=== PATIENT | male | born 1960 | race Caucasian/White ===

== ENCOUNTER 2016-07-03 22:37 | Emergency (ER) | payer MEDICARE, MEDICAID ==
[~2016-07-03] VITALS: Ht 170.2 cm; Wt 147.7 kg
[2016-07-03 22:37] VITALS: BP 121/67; PULSE 84; RESP 15; O2SAT 100
[~2016-07-03 22:37] MED LIST: ASPI325T32 PO; ATOR20TA PO; BUPR100T7 PO; CLON0.1T PO; GABA600T2 PO; LURA60TA PO; METO25TA3 PO
--- NOTE | 2016-07-03 22:38 | ED.REPORT ---
HPI-General Illness Date of Service Jul 03, 2016 ED Provider: Phu Razo MD Patient is an obese 56 year old male with a history of bipolar disorder, hypertension, and coronary artery disease with prior FL and 3x prior stents who presents to the ED via EMS following a syncopal episode just prior to arrival. Patient reports that he sat outside in the sun all day reading and spent some time weeding. He then went inside and ate a big meal, consumed several shots of whiskey, and smoked some cigarettes. The patient then became lightheaded, sat down in his chair, and had an syncopal episode. Patient denies experiencing any chest pain or shortness of breath. His symptoms did not feel similar to when he previously had an FL. The patient has swelling in his legs at baseline, which has not increased recently. The patient states that his right arm sometimes becomes swollen after sleeping on it. He admits to diaphoresis but denies nausea , vomiting, or diarrhea. The patient admits to a chronic "smoker's cough" but states that he has plans to quit smoking. Nursing Notes Stated Complaint: SYNCOPE Chief Complaint: Chest Pain Nursing Notes Reviewed: Yes Allergies: Coded Allergies: tramadol (Verified Allergy, Severe, 05/09/15) pollen extracts (Verified Allergy, Unknown, 09/19/15) Uncoded Allergies: VITAMIN B12 EXTRACTS (Allergy, Unknown, 09/19/15) Scheduled Aspirin (Aspirin) 325 Mg Tablet.dr 325 MG PO DAILY Atorvastatin (Lipitor) 20 Mg Tablet 20 MG PO DAILY Bupropion ER (Wellbutrin SR) 100 Mg Tablet.er 100 MG PO DAILY Clonidine (Clonidine) 0.1 Mg Tablet 0.1 MG PO HS Gabapentin (Gabapentin) 600 Mg Tablet 600 MG PO TID Metoprolol Succinate ER (Toprol XL) 25 Mg Tab.er.24h 25 MG PO DAILY Miscellaneous Medications Lurasidone (Latuda) 60 Mg Tablet 60 MG PO General Time Seen by MD: 22:38 Chief Complaint Other (syncope) Hx Obtained From: Patient Arrived By: Ambulance Sudden in Onset?: Yes Onset Occurred: Just prior to arrival Symptom Duration: Since onset Severity: Current: No pain currently Severity: Maximum: No pain Recent Healthcare: No recent doctor visit, No recent hospitalization Similar Sx Previous: No Past Medical History Past Medical History chronic right hip pain bipolar disorder hiatal hernia gastric ulcer Reports: Coronary artery disease, GERD, Hypertension Reports: Depression Past Surgical History Left hip repair cardiac stents 3x Reports: Appendectomy Smoking History Current Every Day Smoker Social History Alcohol Use: In recovery Other Social History: Local resident Ambulatory Status Independent Review of Systems Full Review of Systems Respiratory: Reports: Non-productive cough, Denies: Shortness of breath Cardiovascular: Denies: Chest pain GI: Denies: Diarrhea, Nausea, Vomiting Musculoskeletal: Reports: Extremity swelling (at baseline) Skin: Reports Diaphoresis Neurologic: Reports: Lightheaded, Syncope Complete sys rev & neg: except as marked. Physical Exam Vital Signs Vital Signs Date Time Temp Pulse Resp B/P Pulse Ox O2 Delivery O2 Flow Rate FiO2 07/04/16 02:14 36.6 70 16 142/80 94 Room Air 07/04/16 01:05 71 20 147/69 96 Room Air 07/03/16 22:37 36.6 84 15 121/67 100 Room Air Initial VS: Reviewed Respiratory: Breath sounds normal, Clear to auscultation, No respiratory distress Cardiovascular: Regular rate & rhythm, Heart sounds normal Neurologic: Alert, Oriented, Nonfocal Psychiatric: Mood/affect normal, Behavior normal General/Constitutional: Awake, Alert, No acute distress Appearance / Presentation: Positive: Obese, morbidly Head / Eyes: Atraumatic, Normocephalic, PERRL ENT: Airway patent, Mucous membranes moist Neck: Supple, Non-tender, No midline vertebral tend Abdomen: Soft, Non-tender, No guarding, No rebound, No distention Upper Extremities Upper Extremity / MS: Atraumatic, No swelling, Neurologic intact, Vascular intact, No edema Lower Extremity / Pelvis / MS: Atraumatic, Neurologic intact, Vascular intact 2+ chronic edema of the bilateral extremities Skin: Warm, Dry Rash / Lesion Notes: Fresh sunburn to his chest, arms, and face. Interpretation & Diagnostics Lab Results Interpretation Result Diagram: 07/03/16225007/03/16 2251 Test 07/03/16 22:51 07/04/16 01:05 07/04/16 01:15 White Blood Count 10.0th/mm3 (3.8-10.1) Red Blood Count 4.69mil/mm3 (4.40-5.80) Hemoglobin 14.7g/dL (13.8-17.2) Hematocrit 43.3% (41.0-50.0) Mean Corpuscular Volume 92.3fL (81-100) Mean Corpuscular Hemoglobin 31.3pg (27.0-35.0) Mean Corpuscular Hemoglobin Concent 33.9% (32.0-37.0) Red Cell Distribution Width 14.1% (12.3-15.4) Platelet Count 247bil/L (150-400) Neutrophils (%) (Auto) 65.5% (40-74) Lymphocytes (%) (Auto) 25.1% (14-46) Monocytes (%) (Auto) 6.8% (4-12) Eosinophils (%) (Auto) 2.0% (0-5) Basophils (%) (Auto) 0.2% (0-3) Band Neutrophils % 0% (1-5) Prothrombin Time 10.5sec (8.1-12.5) Prothromb Time International Ratio 0.98ratio Activated Partial Thromboplast Time 26.1sec (22.8-33.0) Sodium Level 138mEq/L (134-144) Potassium Level 4.0mEq/L (3.5-5.2) Chloride Level 102mEq/L (97-108) Carbon Dioxide Level 23mmol/L (18-29) Blood Urea Nitrogen 9mg/dL (6-24) Creatinine 1.28mg/dL (0.76-1.27) Estimat Glomerular Filtration Rate 62mL/min (>59) Glucose Level 102mg/dL (60-99) Calcium Level 8.6mg/dL (8.5-10.1) Magnesium Level 1.9mg/dL (1.6-2.6) Total Bilirubin 0.3mg/dL (0.0-1.2) Aspartate Amino Transf (AST/SGOT) 20U/L (0-50) Alanine Aminotransferase (ALT/SGPT) 26U/L (0-44) Alkaline Phosphatase 123U/L (25-150) Pro-B-Type Natriuretic Peptide 88.58pg/mL (0-210) Total Protein 6.5g/dL (6.4-8.4) Albumin 3.5g/dL (3.4-5.0) Hold Mathews Top Tube Received (Received) Alcohols 12mg/dL (0-10) Hold Urine Received (Received) Troponin T 0.010ug/L (0.0-0.011) ECG Interpretation ECG Interpretation: Normal sinus rhythm, Rate 79 Time: 22:48 Interpreted by: ED physician Normal ECG Interpretation: No acute ischemic changes X-Ray Chest Interpretation Chest Xray Interpretation: Impression: No acute cardiopulmonary process. View: Portable Interpretation / Wet Read by: Wet read ED physician CT Chest Interpretation Impression: No evidence of PE. Radiologist: Milo Huitron MD 07/04/2016 - 12:21:00 AM PDT Study type: CT pulm angiogram Interpretation / Wet Read by: Interpret - Radiologist Re-Eval/Medical Decision Med Decision/Clinical Course 56-year-old presents after syncopal episode. He was sunburned acutely, moderately dry, and had had alcohol and, in addition to his routine psych meds. Cardiac workup is negative. No evidence of pulmonary embolus. No other evidence of worrisome etiology. Appears to be a situation of vagal same the setting of sunburn, dehydration, alcohol consumption, and background of meds causing orthostatic hypotension and synergistic action with alcohol. Source of Hx: Old records Time of Eval: 01:52 Patient Status: Condition improved Re-Evaluation/Progress Note: Rechecked the patient. No acute problem identified on labs, EKG, chest x-ray, or Chest Angiogram. Patient understands and agrees with the plan to be discharged home. Discharge instructions and follow-up discussed. All questions were addressed. Return to the ED warnings given. Counseled Regarding: Diagnosis, Lab results, Need for follow-up, When/why to return to ED Discharge & Departure Primary Impression: Syncope Syncope type: unspecified Qualified Code: R55 - Syncope and collapse Additional Impressions: Sunburn Dehydration Disposition: Home Discharge Condition All VS Reviewed: Yes Condition: Stable Patient Instructions: Syncope (ED) Additional Instructions: We do not find any dangerous cause for your faint. There is no evidence of heart attack, no evidence of pulmonary embolus, and no other concerning findings on your lab. Drink plenty of fluids and stay well-hydrated Avoid sunburn Follow up with your doctor in the office Return if any immediate issues over the weekend. Referrals: Trip Myers MD (PCP) Scribe Attestation Portions of this note were transcribed by Dipti David. I, Dr. Razo personally performed the history, physical exam and medical decision-making; I reviewed and confirmed the accuracy of the information in the transcribed note. Signed by: Ivonne Olivo, 07/04/2016 0214 copies to: Trip Myers MD, Christopher W MD Jul 03, 2016 22:38 Dipti David Jul 03, 2016 22:46
[2016-07-03] MEDS ORDERED: 0.9% Sodium Chloride 1,000 ML IV ONE (22:48)
[2016-07-03 23:02] LABS: BASOPHILS % (AUTO) 0.2 % (0-3); MONOCYTES % (AUTO) 6.8 % (4-12); Mean Corpuscular Hemoglobin 31.3 pg (27.0-35.0); Mean Corpuscular Volume 92.3 fL (81-100); NEUTROPHILS % (AUTO) 65.5 % (40-74); Platelet Count 247 bil/L (150-400)
[2016-07-03 23:19] LABS: INR 0.98 ratio
[2016-07-03 23:23] LABS: TROPONIN T 0.01 ug/L (0.0-0.011)
[2016-07-03 23:35] LABS: Magnesium 1.9 mg/dL (1.6-2.6)
[2016-07-04 01:05] VITALS: BP 147/69; PULSE 71; RESP 20; O2SAT 96
[2016-07-04 02:14] VITALS: BP 142/80; PULSE 70; RESP 16; O2SAT 94
--- NOTE | 2016-07-04 09:47 | DRSVH ---
PROCEDURE: CT ANGIO CHEST PULMONARY EMBOLISM ([id number]) INDICATIONS: syncope, shortness of breath TECHNIQUE: After the administration of intravenous contrast, 2 mm thick sections acquired from the pulmonary api ricki to the posterior costophrenic angles. 3-dimensional maximum intensity projection (MIP) coronal a nd sagittal reformats were then acquired through the thorax. For radiation dose reduction, the follo wing was used: automated exposure control, adjustment of mA and/or kV according to patient size. COMPARISON: None. FINDINGS: Image quality: Excellent. Pulmonary arteries: Pulmonary arteries are normal in size, and demonstrate no intraluminal filling d efects to suggest central pulmonary embolism. Lungs and pleura: Lungs are clear. No pleural effusions or pneumothorax. Central and peripheral ai rways are patent. Mediastinum: Heart size is normal, without pericardial effusion. No mediastinal or hilar adenopathy . Thoracic aorta is normal in caliber and enhancement. Esophagus is normal in caliber, without hiat al hernia. Bones and chest wall: No suspicious bony lesions. Ribs and thoracic spine appear intact throughout. Thyroid gland appears normal where well visualized. No axillary or supraclavicular adenopathy. Abdomen: Visualized upper abdominal solid organs appear normal in the early arterial phase of enhanc ement. IMPRESSION: No pulmonary embolus found, source of current symptoms is not seen. Large body habitus, but no definite evidence of acute CHF. Dictated by: Israel Urena M.D. on 07/04/2016 at 9:44 Approved by: Israel Urena M.D. on 07/04/2016 at 9:46
--- NOTE | 2016-07-04 10:27 | DRSVH ---
PROCEDURE: X-RAY CHEST ONE VIEW, PORTABLE ([id number]) INDICATIONS: syncope TECHNIQUE: One view of the chest was acquired. COMPARISON: [facility], CR, XR CHEST 2VW, 05/03/2015, 13:10. [facility], CR, CHEST 2VW, 11/23/2013, 11:35. FINDINGS: Surgical changes and devices: None. Lungs and pleura: No pleural effusions or pneumothorax. Lungs are clear. Mediastinum: Mediastinal contours appear normal. Heart size is normal. Bones and chest wall: No suspicious bony lesions. Overlying soft tissues appear unremarkable. IMPRESSION: Normal for age. Source of syncopal episode is not found. Dictated by: Israel Urena M.D. on 07/04/2016 at 10:25 Approved by: Israel Urena M.D. on 07/04/2016 at 10:26
== END 2016-07-04 02:16 | disposition home or self-care (01) ==
LOC: SED 22:37
DX: R55 Syncope and collapse (principal); E86.0 Dehydration; L55.9 Sunburn, unspecified; I11.9 Hypertensive heart disease without heart failure; I25.10 Atherosclerotic heart disease of native coronary artery without angina pectoris; K21.9 Gastro-esophageal reflux disease without esophagitis; F31.9 Bipolar disorder, unspecified; Z79.82 Long term (current) use of aspirin; F17.200 Nicotine dependence, unspecified, uncomplicated; Z88.5 Allergy status to narcotic agent; Z88.8 Allergy status to other drugs, medicaments and biological substances
CPT/HCPCS: 36415; 71010; 71275; 80053; 83735; 83880; 84484; 85025; 85610; 85730; 93005; 96360; 99285; G0480; J7030; Q9967